=== PATIENT | male | born 1985 | race Hispanic/Latino ===

== ENCOUNTER → 2022-06-01 12:04 | Outpatient (CLI) | payer SELFPAY ==
[2022-06-01 13:28] LABS: Influenza A - CEPHEID Flu A POSITIVE (NEGATIVE); Influenza B - CEPHEID Flu B NEGATIVE (NEGATIVE); Respiratory Syncytial Virus Negative (Negative)
[2022-06-01 13:49] LABS: COVID-19 CEPHEID 4-PLEX PCR Negative (Negative)
== END ==
PROVIDERS: Visit Provider Registered Nurse
DX: R50.9 Fever, unspecified (principal); R07.0 Pain in throat
CPT/HCPCS: 0241U; 87070